=== PATIENT | female | born 1990 | race Caucasian/White ===

== ENCOUNTER → 2018-05-11 22:55 | Observation (INO) ==
[2018-05-11 20:38] LABS: Basophils % 0.2 %; Bilirubin,Urine Negative (Negative); Blood,Urine Negative (Negative); Clarity,Urine Clear (Clear); Color,Urine Yellow (Yellow); Eosinophils # 0.1 K/mcL (0.0-0.6); Eosinophils % 1.2 %; Glucose,Urine (UA) Normal (Normal); Hematocrit 28.7 % (35.3-44.9); Immature Granulocytes % 0.4 % (0-4); Ketones,Urine Negative (Negative); Leukocyte Esterase,Urine Moderate (Negative); Lymphocytes # 1.7 K/mcL (0.6-4.6); Lymphocytes % 19.9 %; Mean Corpuscular HGB Conc 31.4 g/dL (31.6-35.5); Mean Corpuscular Hemoglobin 23.7 pg (28.0-33.3); Mean Corpuscular Volume 75.7 fL (83.0-100.0); Mean Platelet Volume 12.1 fL (9.4-12.4); Monocytes # 0.6 K/mcL (0.0-1.3); Monocytes % 7.5 %; Neutrophils # 5.9 K/mcL (1.6-8.9); Nitrite,Urine Negative (Negative); Platelet Count 223 K/mcL (140-400); Protein,Urine Negative (Neg-Trace); Red Blood Count 3.79 M/mcL (3.82-4.97); Red Cell Distribution Width 17.4 % (11.5-14.5); Segmented Neutrophils % 70.8 %; Urobilinogen,Urine Normal (Normal)
[2018-05-11 20:40] LABS: Bacteria,Urine Few per hpf (None-Few); Hyaline Casts,Urine None Seen per lpf (None-Few); Squamous Epithelial Cell,Urine Many per lpf (None-Few); WBC,Urine 15-30 per hpf (0-3)
[2018-05-11 20:44] LABS: Prothrombin Time 10.8 Seconds (9.4-12.1)
[2018-05-11 20:51] LABS: Amphetamine Screen,Urine Negative ng/mL (Cutoff=1000); Barbiturate Screen,Urine Negative ng/mL (Cutoff=200); Benzodiazepines Screen,Urine Negative ng/mL (Cutoff=200); Cannabinoid Screen,Urine Negative ng/mL (Cutoff = 50); Cocaine Screen,Urine Negative ng/mL (Cutoff= 300); Opiate Screen,Urine Negative ng/mL (Cutoff=300); Phencyclidine Screen,Urine Negative ng/mL (Cutoff=25)
--- NOTE | 2018-05-11 20:57 | OB/GYN Progress Note ---
Date of Encounter: 05/11/18 Time of Encounter: 20:52 - Assessment and Plan (1) 24 weeks gestation of Current Visit: Yes Status: Acute admitted for observation (2) Fall Current Visit: Yes Status: Acute fall on 05/10/2018 Qualifiers: Encounter type: initial encounter Qualified Code(s): W19.XXXA - Unspecified fall, initial encounter (3) Rh negative status during in second trimester, antepartum Current Visit: Yes Status: Acute Patient reports she has received Rhogam already once during this due to some early bleeding KB ordered and pending (4) NST (non-stress test) reactive on surveillance Current Visit: Yes Status: Acute FHR baseline 135 bpm moderate variability +15x15 accels no decels noted. No contractions. Cat. 1 tracing. Subjective - Subjective Principal diagnosis: Fall Interval history: Patient is a 28 y/o @ 24w4d presents to labor and delivery with complaints of a fall that occurred yesterday evening. Patient states she was in the shower and fell on her pack and when she tried to get up she slipped and the lower part of her abdomen hit the bathtub. Patient denies any LOF, VB or contractions. Patient reports +FM. Patient states nothing hurt last night but today she feels sore. Patient has not taken anything for the pain. Antepartum ROS: movement normal, no loss of fluid, no vaginal bleeding, no contractions Objective - Exam FHR: auscultation normal, category 1 FHR comments: 135 bpm moderate variability +15x15 accels no decels noted. No contractions. Cat. 1 tracing. Auscultation: bilateral: normal Abdomen: Present: normal appearance, soft, gravid Uterus: Present: normal - Labs Labs: Abnormal lab results RBC 3.79 M/mcL (3.82-4.97) L 05/11/18 20:10 Hgb 9.0 g/dL (11.5-15.4) L 05/11/18 20:10 Hct 28.7 % (35.3-44.9) L 05/11/18 20:10 MCV 75.7 fL (83.0-100.0) L 05/11/18 20:10 MCH 23.7 pg (28.0-33.3) L 05/11/18 20:10 MCHC 31.4 g/dL (31.6-35.5) L 05/11/18 20:10 RDW 17.4 % (11.5-14.5) H 05/11/18 20:10 Fibrinogen 410 mg/dL (169-393) H 05/11/18 20:10 Ur Specific [place] 1.030 (1.010-1.025) H 05/11/18 20:10 Ur Leukocyte Esterase Moderate (Negative) H 05/11/18 20:10 Urine Microscopic RBC 3-5 per hpf (0-3) H 05/11/18 20:10 Urine Microscopic WBC 15-30 per hpf (0-3) H 05/11/18 20:10 Ur Squamous Epith Cells Many per lpf (None-Few) H 05/11/18 20:10 Ur Culture Indicated? NO. (NO) A 05/11/18 20:10
[~2018-05-11 22:55] MED LIST: Acetaminophen 325 MG TABLET PO ONE
== END | disposition home or self-care (01) ==
LOC: 1NENULAB
PROVIDERS: ADMIT Advanced Practice Midwife; ATTEND Advanced Practice Midwife

== ENCOUNTER 2018-07-31 21:29 | Observation (INO) ==
[2018-07-31 22:22] LABS: Bilirubin,Urine Negative (Negative); Blood,Urine Negative (Negative); Clarity,Urine Cloudy (Clear); Color,Urine Yellow (Yellow); Glucose,Urine (UA) Normal (Normal); Ketones,Urine Negative (Negative); Leukocyte Esterase,Urine Large (Negative); Nitrite,Urine Negative (Negative); Protein,Urine Trace mg/dL (Neg-Trace); Specific Gravity,Urine 1.027 (1.010-1.025); Urobilinogen,Urine Normal (Normal)
[2018-07-31 22:25] LABS: Bacteria,Urine Many per hpf (None-Few); Hyaline Casts,Urine None Seen per lpf (None-Few); Squamous Epithelial Cell,Urine Many per lpf (None-Few); WBC,Urine 30-50 per hpf (0-3)
[2018-07-31 22:32] LABS: Amphetamine Screen,Urine Negative ng/mL (Cutoff=1000); Barbiturate Screen,Urine Negative ng/mL (Cutoff=200); Benzodiazepines Screen,Urine Negative ng/mL (Cutoff=200); Cannabinoid Screen,Urine Negative ng/mL (Cutoff = 50); Cocaine Screen,Urine Negative ng/mL (Cutoff= 300); Opiate Screen,Urine Negative ng/mL (Cutoff=300); Phencyclidine Screen,Urine Negative ng/mL (Cutoff=25)
[2018-07-31 22:44] LABS: RBC,Urine 0-3 per hpf (0-3)
[2018-07-31 23:12] LABS: Candida DNA DETECTED (Not Detect); Gardnerella DNA DETECTED (Not Detect); Trichomonas DNA Not Detected (Not Detect)
--- NOTE | 2018-07-31 23:29 | Discharge Summary ---
Date of Encounter: 07/31/18 Time of Encounter: 23:32 - Discharge Diagnosis (1) 36 weeks gestation of Priority: Primary Status: Acute Comments: Admitted to observation for labor evaluation. (2) Vaginal discharge during in third trimester Priority: Secondary Status: Acute Comments: Sterile speculum exam completed. Large amount of white/green chunky, adherent discharge noted in vagina. Vaginosis panel specimen collected, + for bacterial vaginosis and yeast. Will treat with Flagyl and Miconazole. GBS specimen collected as well as GC/Chlamydia. (3) NST (non-stress test) reactive Priority: Secondary Status: Acute Comments: FHR 125 bpm, moderate variability, +15x15 accels, no decels. Rare uterine contractions noted. - Discharge Medications Prescriptions: metroNIDAZOLE [Flagyl] 500 mg PO BID #14 tablet Miconazole Nitrate [Miconazole 7] 100 mg VG DAILY #7 supp.vag Home Medications: Miconazole Nitrate [Miconazole 7] 100 mg VG DAILY #7 supp.vag 08/01/18 [Rx] metroNIDAZOLE [Flagyl] 500 mg PO BID #14 tablet 08/01/18 [Rx] Allergies/Adverse Reactions: Allergy/AdvReac Type Severity Reaction Status Date / Time iron Allergy Hives Verified 01/02/18 09:03 Latex, Natural Rubber Allergy Hives Verified 01/02/18 09:03 Data Procedures and tests throughout hospitalization: Laboratory Tests 07/31/18 07/31/18 07/31/18 21:58 21:58 21:58 Urine Color Yellow Urine Clarity Cloudy A Urine pH 6.0 Ur Specific [place] 1.027 H Urine Protein Trace Urine Glucose (UA) Normal Urine Ketones Negative Urine Blood Negative Urine Nitrite Negative Urine Bilirubin Negative Urine Urobilinogen Normal Ur Leukocyte Esterase Large H Urine Microscopic RBC 0-3 Urine Microscopic WBC 30-50 H Ur Squamous Epith Cells Many H Urine Bacteria Many H Hyaline Casts None Seen Ur Culture Indicated? NO. A Urine Opiates Screen Negative Ur Barbiturates Screen Negative Ur Phencyclidine Scrn Negative Ur Amphetamines Screen Negative U Benzodiazepines Scrn Negative Urine Cocaine Screen Negative U Marijuana (THC) Screen Negative Ur Drug Screen Interp See Below Anahi species DNA DETECTED A Gardnerella DNA Probe DETECTED A Trichomonas DNA Probe Not Detected Labs on day of discharge: Labs from last 24 hours 10/31/18 10/31/18 10/31/18 21:58 21:58 21:58 Urine Color Yellow Urine Clarity Cloudy A Urine pH 6.0 Ur Specific [place] 1.027 H Urine Protein Trace Urine Glucose (UA) Normal Urine Ketones Negative Urine Blood Negative Urine Nitrite Negative Urine Bilirubin Negative Urine Urobilinogen Normal Ur Leukocyte Esterase Large H Urine Microscopic RBC 0-3 Urine Microscopic WBC 30-50 H Ur Squamous Epith Cells Many H Urine Bacteria Many H Hyaline Casts None Seen Ur Culture Indicated? NO. A Urine Opiates Screen Negative Ur Barbiturates Screen Negative Ur Phencyclidine Scrn Negative Ur Amphetamines Screen Negative U Benzodiazepines Scrn Negative Urine Cocaine Screen Negative U Marijuana (THC) Screen Negative Ur Drug Screen Interp See Below Anahi species DNA DETECTED A Gardnerella DNA Probe DETECTED A Trichomonas DNA Probe Not Detected Date of admission: 07/31/18 21:29 Discharging clinician: Radha Cobian Anticipated date of discharge: 07/31/18 - Patient Status Disposition: Home, Self-Care Condition: Good Functional capacity at discharge: independent ambulation Overall status at discharge: patient is progressing back to baseline - Discharge Instructions Follow Up With: Jazmin Tidwell CNM [Non-Partnered Physician] - Additional Instructions: LABOR AND DELIVERY DISCHARGE INSTRUCTIONS Signs and Symptoms to be Reported to your Doctor Immediately: * Sudden gush, continuous or intermittent lead of fluid from vagina (note the time of gush and color of fluid) * Onset of bright red vaginal bleeding with or without pain (if you had a vaginal exam during this visit you may notice some dark red spotting. This is normal.) * Lower abdominal cramping or backache that is premenstrual-like feeling. * More than 6 contractions in one hour. * Burning during urination, having to urinate more frequently or pain in your mid-back. * A change in the baby's activity. This could be an increase or decrease in activity. * Severe headache which does not go away with tylenol. * Sudden swelling in the face, hands, arms and/or legs. * Upper abdominal pain - sometimes associated with heartburn or nausea and is not relieved by Maalox, Mylanta or Tums. * Dizziness or blurred vision or visual disturbances (seeing stars/lights). * Kick Counts One hour after a meal, lay down on one side in a quiet place. Count the number of derian the baby moves during an hour. If less than 6 movements, notify your physician. Diet: *Force fluids - 8-10 tall glasses of fluid per day. May include popsicles and jello. 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 She is 36 weeks and has an appointment with her OB provider this week. GBS swab obtained. Sterile speculum exam completed and large amount of vaginal discharge noted, adherent to vaginal wall. Specimens obtained for vaginosis panel, GC/Chlamydia. SVE 2/thick/ballotable. Patient will be treated for positive BV and yeast. To follow up as scheduled with OB provider. Time Attestation: Total time spent providing and/or coordinating discharge services: Time Spent: Less than 30 minutes Exam - Constitutional General appearance IM: A&O X 3, pleasant, no acute distress, answers questions appropriately - Respiratory Respiratory exam: Present: CTAB - Cardiovascular Cardiovascular exam IM: Present: RRR, +S1, +S2 - GI/Abdominal GI/Abdominal exam IM: soft - Extremities Exam Extremities exam IM: Present: full ROM, normal capillary refill, normal inspection - Neurological Exam Neurological exam: alert, normal gait, oriented X3, reflexes normal - VTE Reasons for not Prescribing Prophylaxis: Treatment not Indicated - Low risk for VTE
== END 2018-08-01 00:52 | disposition home or self-care (01) ==
LOC: 1NENULAB
PROVIDERS: ADMIT Registered Nurse; ATTEND Registered Nurse

== ENCOUNTER → 2018-08-07 16:14 | Observation (INO) ==
--- NOTE | 2018-08-07 16:00 | OB/GYN Progress Note ---
Date of Encounter: 08/07/18 Time of Encounter: 15:58 - Assessment and Plan (1) 37 weeks gestation of Current Visit: Yes Status: Acute NST reactive, FHR baseline 140bpm. SVE unchanged from previous exam. Discharge home with labor precautions. (2) False labor Current Visit: Yes Status: Acute SVE unchanged. Labor precautions given. Subjective - Subjective Principal diagnosis: contractions Interval history: 28 y/o at 37w presenting with c/o contractions. Denies VB or LOF. Reports good FM. Antepartum ROS: movement normal, contractions Objective - Exam FHR: auscultation normal Auscultation: bilateral: normal Abdomen: Present: normal appearance, soft, gravid Cervical dilation: 3.5 (per RN) Cervix effacement: 60 station: -2 Comments: Check by RN. Unchanged from previous exam.
== END | disposition home or self-care (01) ==
LOC: 1NENULAB
PROVIDERS: ADMIT Registered Nurse; ATTEND Registered Nurse

== ENCOUNTER 2018-08-26 21:03 | Inpatient (IN) ==
[~2018-08-26 21:03] MED LIST changes: +*HR* Nalbuphine 10 MG/ML AMPUL IVP PRN; -Acetaminophen 325 MG TABLET PO ONE; +Famotidine 20 MG/2 ML VIAL IVP PRN; +Naloxone 0.4 MG/ML INJ IVP PRN; +Ondansetron 4 MG/2 ML VIAL IVP PRN
[2018-08-26] MEDS ORDERED: Ringers Solution, Lactated 1,000 ML IVC SCH (21:15)
[2018-08-26] MEDS ORDERED: Oxytocin 20 units/ LR 1000 mL 20 UNIT/1,000 ML BAG IVC SCH (22:30)
--- NOTE | 2018-08-26 22:31 | OB/GYN History & Physical ---
Date of Encounter: 08/26/18 Time of Encounter: 22:26 Assessment and Plan (1) 39 weeks gestation of Current visit: Yes Status: Acute admit for IOL Pitocin per protocol epidural when patient desires (2) Rh negative status during in third trimester Current visit: Yes Status: Acute Rhogam evaluation following delivery History of Present Illness Chief complaint: Contractions HPI: Ms. Moore is a 28 year old female at 39w5d presents to labor and delivery for contractions. Patient states she has had 3-4 an hour but was told due to being dilated to 5cm she should come to labor and delivery as soon as contractions start. Patient reports a history of rapid labors. Patient is scheduled for IOL at 0800 tomorrow. Patient reports good movement. On admission patient was dilated 4.5cm and fetus was ballotable. Due to advanced dilatation and unstable lie, bad weather and schedule IOL in am decision was made to start induction of labor. POC was discussed with Dr. Armstrong who agrees with plan of care. Patient has care with [facility]. Blood type: A Negative Rubella: Immune Hep B: Nonreactive GBS: Negative Past Med Surg Social Fam HX - Past Medical History Source: patient Medical history: no medical history Psychiatric history: ADHD, depression, PTSD - Past Surgical History Surgical History: no surgical history - Social History Smoking Status: Never smoker Smokeless Tobacco Status: No Alcohol use: none Drug use: marijuana Current living situation: Home - Independent Activity Level: Independent ambulation Recent Out of Country Travel Within the Last 8 Weeks: No Exposure or Possible Exposure to Illness During Travel: No - Family History Mother Adopted: No Family Member Ethnicity: Non- Living Status: Still Living Hx Family Respiratory Disorders: Yes (Asthma) Hx Family Cancer: No Hx Family GI Disorders: No Hx Family Endocrine Disorder: Yes Hx Family Neuromuscular Disorders: No Obstetrical History - Pregnancies : 5 Para: 4 Term: 4 : 0 Ab's: 0 Livin - History/Complications History/Complications: Patient had one infant at 5 months "due to bad diaper rash" Medications and Allergies Famotidine [Acid Controller] 20 mg PO DAILY 08/16/18 [History] Pnv95/Ferrous Fumarate/FA [ Vitamin Tablet] 1 each PO DAILY 08/16/18 [History] Allergy/AdvReac Type Severity Reaction Status Date / Time iron Allergy Hives Verified 08/26/18 21:05 Latex, Natural Rubber Allergy Hives Verified 08/26/18 21:05 Review of System OB - Constitutional Constitutional ROS IM: no chills, no fever(s), no headache(s) - Cardiovascular Cardiovascular: no chest pain, no palpitations, no pedal edema, no syncope - Respiratory Respiratory: no cough - Gastrointestinal Gastrointestinal: no abdominal pain, no constipation, no diarrhea, no nausea, no vomiting - Genitourinary Genitourinary: no abnormal vaginal bleeding, no dysuria, no flank pain, no urinary frequency, no urinary incontinence, no urinary urgency, no vaginal odor, no vaginal pruritis Exam - Constitutional Constitutional: well developed, well nourished, no acute distress, average body habitus - HEENT HEENT: Normocephaly, Mucus Membranes Moist - Neck Neck exam: full ROM, normal inspection, supple - Lungs Respiratory exam: CTAB - Cardiovascular Cardiovascular exam: RRR, +S1, +S2 - Abdomen Abdomen: Present: bowel sounds normal, gravid, non tender - Extremities Extremities exam: full ROM, normal capillary refill, normal inspection Deep Tendon Reflex Grade: 2+ Normal - Cervix Dilation: 4 (4.5 per RN) - Uterus Uterus exam: Present: normal contour - Anus/Rectum Anus/Rectum: Present: normal perianal skin - Comments Comments: FHR 115 bpm moderate variability +15x15 accels no decels noted. Irregular contractions. Cat. 1 tracing Results All other labs normal. - VTE Reasons for not Prescribing Prophylaxis: Treatment not Indicated - Low risk for VTE
[2018-08-26 22:36] LABS: Basophils % 0.2 %
[2018-08-26 22:38] LABS: Eosinophils % 0.4 %; Hematocrit 27.4 % (35.3-44.9); Immature Granulocytes % 0.6 % (0-4); Immature Platelets 9.3 % (1.1-6.1); Lymphocytes # 1.6 K/mcL (0.6-4.6); Lymphocytes % 18.3 %; Mean Corpuscular HGB Conc 29.2 g/dL (31.6-35.5); Mean Corpuscular Hemoglobin 20.8 pg (28.0-33.3); Mean Corpuscular Volume 71.4 fL (83.0-100.0); Mean Platelet Volume 11.6 fL (9.4-12.4); Monocytes # 0.6 K/mcL (0.0-1.3); Monocytes % 6.7 %; Neutrophils # 6.6 K/mcL (1.6-8.9); Nucleated Red Blood Cells 0.4 /100 WBC (0); Platelet Count 188 K/mcL (140-400); Red Blood Count 3.84 M/mcL (3.82-4.97); Red Cell Distribution Width 19.5 % (11.5-14.5); Segmented Neutrophils % 73.8 %
[2018-08-26 22:42] LABS: Amphetamine Screen,Urine Negative ng/mL (Cutoff=1000); Barbiturate Screen,Urine Negative ng/mL (Cutoff=200); Benzodiazepines Screen,Urine Negative ng/mL (Cutoff=200); Cannabinoid Screen,Urine Negative ng/mL (Cutoff = 50); Cocaine Screen,Urine Negative ng/mL (Cutoff= 300); Opiate Screen,Urine Negative ng/mL (Cutoff=300); Phencyclidine Screen,Urine Negative ng/mL (Cutoff=25)
[2018-08-27] MEDS ORDERED: Lidocaine -MPF 2% 5 ML VIAL ONE (01:18)
[2018-08-27] MEDS ORDERED: *HR* FentaNYL (PF) 100 MCG/2 ML VIAL ONE (01:31)
[2018-08-27] MEDS ORDERED: Epidural Premix (fent/bupiv) 110 ML EP ONE (02:05)
--- NOTE | 2018-08-27 02:17 | Anesthesia Evaluation PreOp ---
Date of Encounter: 08/27/18 Time of Encounter: 01:31 - Past History Planned Operation: RAQUEL Cardiac History: Denies any Significant Hx Pulmonary History: Denies Any Significant HX WEB SERVICES MANAGER History: Denies Any Significant HX Other Medical History: GERD, Other (hx chlamydia) Anesthesia History: No Prior Anesthetic Complications, Past Anesthesia (previous epidural x 3) : Yes Alcohol Use: none Drug use: marijuana Medications and Allergies Famotidine [Acid Controller] 20 mg PO DAILY 08/16/18 [History] Pnv95/Ferrous Fumarate/FA [ Vitamin Tablet] 1 each PO DAILY 08/16/18 [History] Allergy/AdvReac Type Severity Reaction Status Date / Time iron Allergy Hives Verified 08/26/18 21:05 Latex, Natural Rubber Allergy Hives Verified 08/26/18 21:05 - Meds/Allergy Pre-op Review Medications Reviewed: Yes Allergies Reviewed: Yes Beta Blockers on Current Med List: No Anesthesia Results - Labs 08/26/18 22:15 Anesthesia Exam BP 124/57 P 75 R 18 T 98.2 Height: 5'2" Weight: 91.7kg NPO (# of Hours): 7 Pain Scale: 6 Pain Scale Used: Numeric (1 - 10) - HEENT Pupil (Motor): Pupils equal Mallampati: II Teeth: Normal Oral Opening: Greater than 3 - WEB SERVICES MANAGER LOC: Oriented WEB SERVICES MANAGER Motor: Normal RUE, Normal LUE, Normal RLE, Normal LLE, Normal Face WEB SERVICES MANAGER Sensory: Normal: RUE, LUE, RLE, LLE, Face - Cardiac Rhythm: Regular Murmur: None JVD: No Carotid Bruit: No - Pulmonary Breath Sounds: bilateral Clear Respiratory Effort: Symmetrical Anesthesia Assess/Plan ASA Score: 2 Level of consciousness: Cooperative Anesthetic Plan: Epidural Autologous Blood: No Monitoring Plan: Standard Monitors Recovery Plan: Other
--- NOTE | 2018-08-27 02:25 | Anesthesia Procedures ---
Date of Encounter: 08/27/18 Time of Encounter: 01:31 Procedures: Anesthesia - Epidural/Spinal Patient ID/Chart reviewed: Yes Patient examined: Yes OB Eval: Gestational age: 39.5 OB Eval: : 5 OB Eval: Hx Para: 4 OB Eval: Dilated at (cm): 4 OB Eval: Contractions: Non-stressed pattern Consent Obtained: Yes Supplemental Oxygen: None/Room Air Site Prep: Aseptic Technique, Sterile prep and drape, Povidone-Iodine 1% Patient position: upright Local Anesthetic: Lidocaine 1% Amount of Local Anesthetic used: 3 Touhy Needle Gauge: 18 Touhy Needle Depth (cm): 5 Catheter Depth at Skin (cm): 15 Test Dose (1.5% Lido + Epi): Volume given (mls): 3 Test Dose Result: Negative Loading Dose: Fentanyl (mcg): 100 Loading Dose: Other: ropivicaine 0.2 Loading Dose Administered: Thru Catheter Infusion Med: 0.125% Bupivacaine w/ 2 mcg/ml Fentanyl Infusion Rate (mls/hr): [address]: Tegaderm, Tape Interspace Used: L3-L4 Loss of Resistance (MINISTERIO): Yes Blood: No CSF: No Paresthesia: No Procedure: RAQUEL placed 1st pass in upright position without any immediate noted complications. VSS and FHT stable throughout. Vitals + FHT's: 0131 BP 124//59 P 75 R 18 0210 BP 113/69 R 16 P 68
--- NOTE | 2018-08-27 04:03 | OB Labor Progress Note ---
Date of Encounter: 08/27/18 Time of Encounter: 03:58 Labor Progress Note - Subjective Subjective: Patient comfortable with epidural in place. - Cervix Cervix: 6cm per RN - Heart Tones Heart Tones: FHR 105 with moderate variability +15x15 accels no decels noted. - Haskell Haskell: 2-3 min apart - Interventions Interventions: EFM and toco reviewed labs reviewed Discussed tracing with RN and Dr. Armstrong - Plan Physician notified: Yes Physician notified details: Dr. Armstrong reviewed tracing with CNM agrees to continue pitocin at this time. HGB of 8 discussed as well. 2 units of RBC were ordered Dr. Armstrong recommends not transfusing prior to delivery to hold them until after if needed. Patient is allergic to Fe and hgb has been between 8.4-9 during . Plan: Continue labor management If FHR variability decreases to minimal, accels are absent or decels become present Pitocin to be shut off
--- NOTE | 2018-08-27 05:55 | OB Labor Progress Note ---
Date of Encounter: 08/27/18 Time of Encounter: 05:52 Labor Progress Note - Subjective Subjective: Patient denies any pain at this time. Discussed POC with patient. Patient denies any questions or concerns. - Cervix Cervix: 7/100/-1 - Heart Tones Heart Tones: 110 bpm moderate variability +15x15 accels no decels noted. - [place]: 2-3 min apart - Interventions Interventions: SVE, AROM large amount of clear fluid noted. Pericare provided. Patient repositioned. - Plan Physician notified: No Plan: Continue labor management anticipate
--- NOTE | 2018-08-27 07:17 | OB/GYN Procedure Note ---
Delivery - Delivery Date: 08/27/18 Provider: Jazmin Tidwell Intrapartum events: none Delivery augmentation: rupture of membranes, pitocin Delivery monitor: external FHT, external uterine Anesthesia: epidural Quantitated Blood Loss: 300 - Infant (s) A Infant Delivery Date: 08/27/18 Delivery Time: 06:46 Presentation: vertex Position: DUSTY Route of delivery: Gender: Female Viability: Viable Pounds: 7 Ounces: 5 Weight Gram: 3305 kg at 1 minute: 8 at 5 mins: 9 Shoulder Dystocia: not encountered Specimens collected: cord blood Placenta: spontaneous, uterine exploration Cord: nuchal cord (x1 loose), 3 umbilical vessels, delivered through nuchal - Repair Episiotomy: none Laceration Description: Perineal - 1st Degree (repaired with 3-0 vicryl) - Complications Delivery complications: none - Disposition Mom disposition: stable in LDR disposition: stable in LDR - Comments Comments: Called to LDR, patient complete and feeling pressure. Patient placed in stirrups and prepped for vaginal delivery. Under maternal effort patient spontaneously delivered a viable female infant over a 1st degree perineal laceration. Nuchal x1 loose and delivered through, no shoulder dystocia or meconium encountered. Infant was placed on maternal abdomen. 1st degree perineal laceration repaired with 3-0 vicryl. Cord was clamped and cut. Cord segment and cord blood collected. Placenta delivered spontaneously and intact. Uterus was explored for blood clots, none noted. Fundus firm. Pericare provided, all counts correct. Both mother and infant stable in LDR for 2 hour recovery.
[2018-08-27] MEDS ORDERED: Rho Immune Globulin 1,500 UNIT SYRINGE IM PRN (08:10)
[2018-08-27] MEDS ORDERED: Acetaminophen 325 MG TABLET PO PRN (08:10)
[2018-08-27] MEDS ORDERED: Benzocaine/Menthol 56 GM AEROSOL SPRAY TP PRN (08:10)
[2018-08-27] MEDS ORDERED: Oxytocin 20 units/ LR 1000 mL 20 UNIT/1,000 ML BAG IVC SCH (08:10)
[2018-08-27] MEDS ORDERED: Measles/Mumps/Rubella Vacc 0.5 ML VIAL SQ PRN (08:10)
[2018-08-27] MEDS: Ibuprofen 600 MG TABLET PO PRN ×2 (10:23→19:02)
[2018-08-27] MEDS: Prenatal Vit/FA 1 EACH TABLET PO SCH (10:23)
[2018-08-28 00:17] LABS: Basophils % 0.2 %; Eosinophils # 0.1 K/mcL (0.0-0.6); Eosinophils % 1.6 %; Hematocrit 25.2 % (35.3-44.9); Hemoglobin 7.3 g/dL (11.5-15.4); Immature Granulocytes % 1.1 % (0-4); Immature Platelets 8.1 % (1.1-6.1); Lymphocytes # 1.8 K/mcL (0.6-4.6); Mean Corpuscular Hemoglobin 21.1 pg (28.0-33.3); Mean Corpuscular Volume 72.8 fL (83.0-100.0); Mean Platelet Volume 11.6 fL (9.4-12.4); Monocytes # 0.5 K/mcL (0.0-1.3); Monocytes % 6.5 %; Neutrophils # 5.7 K/mcL (1.6-8.9); Platelet Count 178 K/mcL (140-400); Red Blood Count 3.46 M/mcL (3.82-4.97); Red Cell Distribution Width 19.5 % (11.5-14.5); Segmented Neutrophils % 68.6 %
[2018-08-28 00:33] LABS: Anisocytosis 1+ (Not Present); Polychromasia 1+ (Not Present)
[2018-08-28] MEDS: Prenatal Vit/FA 1 EACH TABLET PO SCH (09:05)
[2018-08-28] MEDS: Ibuprofen 600 MG TABLET PO PRN ×2 (09:09→19:03)
--- NOTE | 2018-08-29 01:49 | OB/GYN Progress Note ---
Date of Encounter: 08/28/18 Time of Encounter: 11:15 - Assessment and Plan (1) Vaginal delivery Current Visit: Yes Status: Acute Physically meeting milestones High potential for infant neglect based on pt history and actions while on PP unit. [facility] employment evaluator/case manager consulted and case filed based on patient's actions and words. POLICE CHIEF to bedside for follow up assessment as well. Continue routine pp care Anticipate discharge to home tomorrow. (2) anemia Current Visit: Yes Status: Acute Increase iron supplementation to BID Subjective - Subjective Principal diagnosis: s/p Interval history: Feeling well. Out of bed without dizziness. Some perineal discomfort-using ice pack. Cramping minimal, using ibuprofen. Bottlefeeding when cued by the nursery staff. Voiding without difficulty. Passing flatus, no BM yet. Tolerating regular diet. Patient reports: appetite normal, voiding normally, pain well controlled, ambulating normally : doing well, bottle feeding Objective - Latest Vital Signs Latest vital signs: Vital Signs Temp Pulse Resp BP Pulse Ox 08/28/18 07:30 97.8 F 70 16 111/72 08/28/18 05:20 97.8 F 77 14 118/78 99 Intake and Output 08/28/18 08/28/18 08/29/18 15:59 23:59 07:59 Intake Total 240 / 240 1300 / 1300 Output Total 900 / 900 Balance 240 / 240 400 / 400 Intake: Oral 240 / 240 1300 / 1300 Output: Urine 900 / 900 Other: Meal Breakfast Percent of Meal Consumed 100% - Exam Lungs: bilateral: normal Chest: Normal S1, Normal S2 Extremities: Present: normal Abdomen: Present: normal appearance, soft, gravid Uterus: Present: normal, firm Uterus Position: At Umbilicus, Midline
[2018-08-29] MEDS: Prenatal Vit/FA 1 EACH TABLET PO SCH ×2 (08:09→08:10)
[2018-08-29] MEDS: Ibuprofen 600 MG TABLET PO PRN (08:09)
[2018-08-29 08:20] VITALS: BP 124/76
--- NOTE | 2018-08-29 09:34 | Discharge Summary ---
Date of Encounter: 08/29/18 Time of Encounter: 09:32 - Discharge Diagnosis (1) anemia Priority: Secondary Status: Acute Comments: VSS; asymptomatic (2) Vaginal delivery Priority: Primary Status: Acute Comments: S/P Vaginal delivery day 2 Pain well controlled Lochia light and without clots VSS Tolerating regular diet; passing flatus Voiding without difficulty Bottle Feeding Discharge home today POC per consult with Dr Horn - Discharge Medications Prescriptions: Ibuprofen [Motrin] 600 mg PO Q6HR PRN #30 tablet PRN Reason: Cramping Docusate [Colace] 100 mg PO BID #30 capsule Ferrous Sulfate 325 mg PO BIDWM #180 tablet Home Medications: Famotidine [Acid Controller] 20 mg PO DAILY 08/16/18 [History] Pnv95/Ferrous Fumarate/FA [ Vitamin Tablet] 1 each PO DAILY 08/16/18 [History] Acetaminophen [Tylenol] 650 mg PO Q6HR PRN tablet 08/29/18 [Rx] Benzocaine/Menthol Scott [Dermoplast Scott] 1 appl TP QID PRN aerosol 08/29/18 [Rx] Docusate [Colace] 100 mg PO BID #30 capsule 08/29/18 [Rx] Ferrous Sulfate 325 mg PO BIDWM #180 tablet 08/29/18 [Rx] Ibuprofen [Motrin] 600 mg PO Q6HR PRN #30 tablet 08/29/18 [Rx] Allergies/Adverse Reactions: Allergy/AdvReac Type Severity Reaction Status Date / Time iron Allergy Hives Verified 08/26/18 21:05 Latex, Natural Rubber Allergy Hives Verified 08/26/18 21:05 Data Procedures and tests throughout hospitalization: Laboratory Tests 08/26/18 08/26/18 08/26/18 22:15 22:15 22:15 WBC 8.9 RBC 3.84 Hgb 8.0 L Hct 27.4 L MCV 71.4 L MCH 20.8 L MCHC 29.2 L RDW 19.5 H Plt Count 188 MPV 11.6 Immature Gran % 0.6 Seg Neutrophils % 73.8 Lymphocytes % 18.3 Monocytes % 6.7 Eosinophils % 0.4 Basophils % 0.2 Neutrophils # 6.6 Lymphocytes # 1.6 Monocytes # 0.6 Eosinophils # 0.0 Basophils # 0.0 Nucleated RBCs/100 WBC 0.4 H Immature Plt Fraction 9.3 H Polychromasia Anisocytosis Urine Opiates Screen Negative Ur Barbiturates Screen Negative Ur Phencyclidine Scrn Negative Ur Amphetamines Screen Negative U Benzodiazepines Scrn Negative Urine Cocaine Screen Negative U Marijuana (THC) Screen Negative Ur Drug Screen Interp See Below Blood Type A NEGATIVE Antibody Screen NEGATIVE Screen Baby's Blood Type Mother's Blood Type Rhogam Indicated Rhogam Req for Mother Crossmatch See Detail 08/27/18 08/27/18 06:55 23:55 WBC 8.3 RBC 3.46 L Hgb 7.3 L Hct 25.2 L MCV 72.8 L MCH 21.1 L MCHC 29.0 L RDW 19.5 H Plt Count 178 MPV 11.6 Immature Gran % 1.1 Seg Neutrophils % 68.6 Lymphocytes % 22.0 Monocytes % 6.5 Eosinophils % 1.6 Basophils % 0.2 Neutrophils # 5.7 Lymphocytes # 1.8 Monocytes # 0.5 Eosinophils # 0.1 Basophils # 0.0 Nucleated RBCs/100 WBC Immature Plt Fraction 8.1 H Polychromasia 1+ A Anisocytosis 1+ A Urine Opiates Screen Ur Barbiturates Screen Ur Phencyclidine Scrn Ur Amphetamines Screen U Benzodiazepines Scrn Urine Cocaine Screen U Marijuana (THC) Screen Ur Drug Screen Interp Blood Type Antibody Screen Screen NEGATIVE Baby's Blood Type AB RH POSITIVE Mother's Blood Type A RH NEGATIVE Rhogam Indicated YES Rhogam Req for Mother 1 Crossmatch Date of admission: 08/26/18 21:03 Primary care physician: ENEDINA ROTHMAN Consults: 08/27/18 08:10 Consult to Solution Design And Analysis Manager [CONS] Routine Reason for SW Consult: has a current case open with CPS Discharging clinician: Naida Urrutia Anticipated date of discharge: 08/29/18 - Patient Status Disposition: Home, Self-Care Condition: Good Functional capacity at discharge: independent ambulation Overall status at discharge: patient is progressing back to baseline - Discharge Instructions Follow Up With: NONE,PCP [Primary Care Provider] - Jazmin Tidwell CNM [Non-Partnered Physician] - - Diet and Activity Activity: increase activity as tolerated Diet: regular diet Hospital Course Reason for admission: induction of labor, IUP at term Delivery: Episiotomy: none Laceration: 1st degree Other procedures: none complications: none Discharge diagnosis: IUP at term delivered [place] baby: female Time Attestation: Total time spent providing and/or coordinating discharge services: Time Spent: Less than 30 minutes Exam - Constitutional Vitals: Temp Pulse Resp BP Pulse Ox 98.0 F 71 16 124/76 99 08/29/18 08:19 08/29/18 08:19 08/29/18 09:25 08/29/18 08:19 08/28/18 05:20 General appearance IM: cooperative, A&O X 3 - Respiratory Respiratory exam: Present: CTAB - Cardiovascular Cardiovascular exam IM: Present: RRR, +S1, +S2 - GI/Abdominal GI/Abdominal exam IM: normal bowel sounds, no peritoneal signs - Rectal Rectal exam: deferred - Uterine Tone: Firm Uterus Position: At Umbilicus, Midline - Extremities Exam Extremities exam IM: Present: normal capillary refill, normal inspection, radial pulses palpable and symmetrical - Neurological Exam Neurological exam: alert, oriented X3
== END 2018-08-29 11:12 | disposition home or self-care (01) | DRG 560 ==
LOC: 1NENULAB → 1NENUOBS 08-27 09:21
PROVIDERS: ADMIT Advanced Practice Midwife; ATTEND Advanced Practice Midwife